=== PATIENT | female | born 1975 | race Caucasian/White ===

== ENCOUNTER 2024-09-14 07:45 | Observation (INO) ==
[~2024-09-14 07:45] MED LIST: Metoclopramide 5 MG/ML VIAL (10 mg) IV PRN; NS 0.45% 1000 ml BAG 1,000 ML IV SCH; Naloxone 0.4 mg VIAL 0.4 mg/ml 1 ml VIAL IV PRN; Ondansetron 4 mg VIAL 2 MG/ML 2 ml VIAL IV PRN
[2024-09-14] MEDS ORDERED: ceFAZolin 2 GM PREMIX 2 GM/50 ML BAG ONE (08:04)
[2024-09-14] MEDS ORDERED: Tranexamic Acid 1 GM/100ML BAG 2,000 MG/200 ML BAG IV ONE (08:04)
[2024-09-14] MEDS ORDERED: ceFAZolin 1 GM in Dextrose 1 GM/50 ML BAG ONE (08:04)
[2024-09-14] MEDS ORDERED: Lidocaine 2% PF 5 ML VIAL ONE ×2 (08:28→09:52)
[2024-09-14] MEDS ORDERED: Midazolam 2 mg/2 ml VIAL 1 mg/ml 2 ml VIAL (2 mg) ONE ×2 (08:28→09:51)
[2024-09-14] MEDS ORDERED: fentaNYL 250 mcg/5 ml 50 MCG/ML 5 ml VIAL (250 MCG) ONE (08:28)
[2024-09-14 08:30] LABS: Rapid COVID-19 Molecular Undetected (Undetected)
[2024-09-14] MEDS ORDERED: Rocuronium 50 mg VIAL 10 mg/ml 5 ml VIAL (50 mg) ONE (08:31)
[2024-09-14] MEDS: Lactated Ringers 1000 ml BAG 1,000 ML IV SCH ×2 (08:46→14:54)
[2024-09-14] MEDS: Acetaminophen IV 1 GM/100ML 1,000 MG/100 ML BAG IV ONE (08:51)
[2024-09-14] MEDS: Buffered Lidocaine 1% SYRIN 1 ml INTRADERM ONE (08:51)
[2024-09-14] MEDS ORDERED: ROPIVACAINE 5 MG/ML 30 ML BTL (0.5%) ONE ×2 (09:45→09:52)
[2024-09-14] MEDS ORDERED: fentaNYL 100 mcg/2 ml 50 MCG/ML VIAL ONE ×2 (09:51→13:33)
[2024-09-14] MEDS ORDERED: Dexmedetomidine 200 mcg/2 ml 2 ml VIAL (200 mcg) ONE (10:06)
[2024-09-14] MEDS ORDERED: Ondansetron 4 mg VIAL 2 MG/ML 2 ml VIAL ONE (10:53)
[2024-09-14] MEDS ORDERED: Dexamethasone IV 4 MG/ML VIAL 1 ml VIAL ONE (10:53)
[2024-09-14] MEDS ORDERED: Calcium Carb (TUMS) 500 mg CHEW TAB PO PRN (11:22)
[2024-09-14] MEDS ORDERED: Lactulose 30 ml UDC PO PRN (11:22)
[2024-09-14] MEDS ORDERED: Ondansetron 4 mg VIAL 2 MG/ML 2 ml VIAL IV PRN (11:22)
[2024-09-14] MEDS ORDERED: Ondansetron ODT 4 mg TAB 4 MG TAB PO PRN ×2 (11:22→13:51)
[2024-09-14] MEDS ORDERED: Magnesium Hydroxide LIQ 30 ML UDC PO PRN (11:22)
[2024-09-14] MEDS: fentaNYL 100 mcg/2 ml 50 MCG/ML VIAL IV PRN (13:38)
[2024-09-14] MEDS ORDERED: Albuterol HFA INHALER 8 gm MDI INH SCH (14:00)
[2024-09-14] MEDS ORDERED: Albuterol HFA INHALER 8 gm MDI INH PRN (14:03)
[2024-09-14] MEDS: Scopolamine 1 mg/72hr PATCH TRANSDERM ONE (14:32)
[2024-09-14] MEDS: Morphine 2 MG/ML SYRINGE IV PRN (15:48)
[2024-09-14] MEDS: ceFAZolin 2 GM PREMIX 2 GM/50 ML BAG IV SCH (18:39)
[2024-09-14] MEDS: [UNRECOGNIZED DRUG - REMARK] PO SCH (20:36)
[2024-09-14] MEDS: Magnesium Hydroxide LIQ 30 ML UDC PO SCH (20:36)
[2024-09-14] MEDS: [UNRECOGNIZED DRUG - REMARK] PO SCH (20:36)
[2024-09-15] MEDS: Vitamin THERAPEUTIC TAB PO SCH (08:07)
[2024-09-15 08:20] LABS: Hematocrit 35.3 % (35-45); Hemoglobin 11.9 g/dL (11.5-14.3); Mean Platelet Volume 8.3 fL (7.5-11.2); Platelet Count 182 10^3/uL (150-450)
[2024-09-15 08:31] LABS: Anion Gap 7 mmol/L (2-16); Blood Urea Nitrogen 28 mg/dL (6-24); CO2 Carbon Dioxide 25 mmol/L (22-32); Calcium 8.2 mg/dL (8.6-10.3); Chloride 103 mmol/L (101-111); Creatinine, Serum 1.05 mg/dL (0.51-0.95); Glucose 123 mg/dL (70-100); Sodium 135 mmol/L (135-145); eGFR CKD-EPI 65.1 (>60)
[2024-09-15 11:40] VITALS: BP 105/60
== END 2024-09-15 13:22 | disposition home or self-care (01) ==
LOC: SSU 07:45 → OR 07:45
PROVIDERS: ADMIT Orthopaedic Surgery Adult Reconstructive Orthopaedic Surgery; ATTEND Orthopaedic Surgery Adult Reconstructive Orthopaedic Surgery